=== PATIENT | female | born 1955 | race Caucasian/White ===

== ENCOUNTER 2025-01-24 08:34 | Inpatient (IN) ==
--- NOTE | 2025-01-24 08:46 | Emergency Department Note ---
Impression & Plan Pneumonia, Chronic respiratory failure with hypoxia, on home oxygen therapy, Advanced COPD ED Provider Note NAME: LUNA RUEDA AGE: 70 SEX: F : 1955 ARRIVES VIA: Ambulance INFORMANT: Patient ED PROVIDER(S): Natalio Easton DO CHIEF COMPLAINT: Cough, congestion, shortness of breath and chest pain with coughing HPI: Patient is a 70-year-old female with a past medical history of advanced COPD, tobacco abuse, chronic respiratory failure on 4 L nasal cannula who presents to the ER for symptoms that started a week ago. She notes that initially started with cough and congestion. She just finished up a Z-Chuck 2 days ago. The cough has been persistent. She is bringing up a green productive sputum. She admits to pain on her right upper anterior chest wall with coughing. She does have shortness of breath. No dysuria, urgency or frequency. No other exacerbating or remitting factors. ADDITIONAL HISTORY OBTAINED: Per HPI Chronic Medical/Social Conditions Affecting Care: Per HPI PAST MEDICAL HISTORY:See Below PAST SURGICAL HISTORY:See Below FAMILY HISTORY:See Below SOCIAL HISTORY:See Below HOME MEDICATIONS:See Below ALLERGIES:See Below VITALS:See Below PHYSICAL EXAMINATION: GENERAL: Sitting up in bed, alert, well appearing, well nourished, no distress, non-toxic EYE EXAM: normal conjunctiva. OROPHARYNX: no exudate, no erythema, lips, buccal mucosa, and tongue normal and mucous membranes are moist NECK: supple, no nuchal rigidity, no adenopathy, non-tender LUNGS: Diffuse wheezing bilaterally. Normal chest wall mechanics CHEST: Tenderness over the anterior chest wall on palpation HEART: no murmurs, S1 normal and S2 normal ABDOMEN: abdomen soft, non-tender, normo-active bowel sounds, no masses, no rebound or guarding. UPPER EXTREMITIES: upper extremities are grossly normal. LOWER EXTREMITIES: No pitting edema. Calves are equal bilaterally NEURO EXAM: Normal sensorium, cranial nerves II-XII grossly intact, normal speech, no gross weakness of arms, no gross weakness of legs. MEDICAL DECISION MAKING: Patient is a 70-year-old female who presents ER for above-stated complaint. IV was established and blood work is obtained. She is found to be tachycardic heart rate in the 120s. She was placed on nasal cannula. She was given hour- long DuoNeb in combination with IV steroids Rocephin and azithromycin. Chest x- ray suggested questionable pneumonia. CT of the chest to confirm this. Patient was updated at bedside. She was given IV fluids. Labs showed a leukocytosis of 15,000. No significant anemia. VBG was unremarkable. BMP PE with a mild hypokalemia at 3.4. Lactate and LFTs and bilirubin were unremarkable. Troponin negative. Lipase normal. Patient was updated at bedside discussed case with hospitalist for further evaluation management and treatment. Respiratory rate did improve with nebs. Consults/Care Managements Discussions: Per [facility] Triage Nursing notes reviewed. Limited review of prior medical records performed Vital Signs: reviewed and remarkable for no significant abnormalities Differential diagnosis: Differential diagnoses includes but is not limited to pneumonia, bronchitis, COPD/Asthma exacerbation, pneumothorax, pulmonary embolism, congestive heart failure, acute coronary syndrome ER treatment provided: See below Diagnostics interpreted by me include EKG and cardiac monitoring as listed below: -Cardiac Monitoring: An order was placed for continuous cardiac monitoring. The monitor shows a rate of 125 with sinus rhythm. -ECG: Sinus tachycardia rate of 130 Normal axis No PVCs QTc 438 -Laboratory studies:Interpreted by me as stated above in MDM and shown below. Imaging studies: Xrays: As interpreted by me: Portable AP upright 1 view of the chest shows questionable infiltrate CTs show: CT angio of the chest showed pneumonia Procedures:none Critical Care: None Past Med/Surg History Problem List (Updated 01/24/25 @ 15:15 by Natalio Easton DO) Pneumonia (Acute) Community acquired pneumonia (Acute) Nicotine use disorder (Chronic) Advanced COPD (Chronic) Anxiety (Chronic) Chronic respiratory failure with hypoxia, on home oxygen therapy (Chronic) Seasonal allergies (Chronic) GERD (gastroesophageal reflux disease) (Chronic) Medical History Acute exacerbation of chronic obstructive pulmonary disease Surgical History H/O tooth extraction H/O: hysterectomy partial - took uterus only History of rectal surgery Previous back surgery X3 Family History Denies family history of Ovarian cancer Prostate cancer Myocardial infarction Breast cancer Colorectal cancer Social History Smoking Status: Light tobacco smoker Tobacco Type: Cigarettes Age Started Using Tobacco: 11; packs per day: 0.25; Second Hand Exposure: Yes; Do You Dip or Chew Tobacco: No; Hx Alcohol Use: No Hx Substance Use: No Preferred Language: Citizen Of [place] Communication Ability: Effective Visual Impairment: Limited Hearing Ability: Normal Cdl Instructor Required: No Beliefs That Will Affect Care: None marital status: / Current Living Situation: Family Current Living Situation Comment: niece 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 Feels Safe at Home: Yes Childhood Exposure to Second-Hand Smoke: Yes caffeine: Yes (tea) during the past year weight has: remained stable Dental Care, Regularly: No Physical Activity Frequency: Daily Seatbelt Use: always Sunscreen Use: Yes Assistive Devices: Denture - Upper, Glasses and Oxygen - Continuous Allergies Allergies Allergy/AdvReac Type Severity Reaction Status Date / Time No Known Drug Allergies Allergy Intermediate Verified 01/15/25 14:40 Home Meds Home Medications Medication Instructions Recorded Confirmed pantoprazole 40 mg tablet,delayed 0 mg PO BID 01/15/25 01/24/25 release ensifentrine 3 mg/2.5 mL 0 ml inhalation BID 01/24/25 01/24/25 suspension for nebulization (Ohtuvayre) loratadine 10 mg tablet 0 mg PO DAILY 01/24/25 01/24/25 Previous Rx's Medication Instructions Recorded albuterol sulfate 90 mcg/actuation 2 inh inhalation Q4H PRN shortness 06/18/24 aerosol inhaler of breath or wheezing #3 Inhalers budesonide 160 mcg-glycopyr 9 2 inh inhalation BID #32.1 grams 06/18/24 mcg-formot 4.8 mcg/actuation HFA inhaler (Breztri Aerosphere) fluticasone propionate 50 1 spray intranasal BID PRN nasal 06/18/24 mcg/actuation nasal congestion #16 grams spray,suspension montelukast 10 mg tablet 10 mg PO DAILY #90 tabs 07/15/24 Portable Oxygen #1 ea 07/23/24 ipratropium 0.5 mg-albuterol 3 mg 3 ml inhalation TID PRN wheezing 08/05/24 (2.5 mg base)/3 mL nebulization #360 mL soln furosemide 20 mg tablet 20 mg PO QAM PRN edema #30 tabs 10/18/24 buspirone 10 mg tablet 10 mg PO BID #180 tabs 12/03/24 doxycycline hyclate 100 mg capsule 100 mg PO BID 10 days #20 caps 01/22/25 Results & Data (ED) Vital Signs Vital Signs - 24 hr 01/24/25 08:43 01/24/25 08:46 01/24/25 08:46 Temperature 37.0 C Temperature Source Oral Pulse Rate 128 H Pulse Rate from SpO2 Sensor Respiratory Rate 22 Respiratory Effort / Characteristics Non-Labored Spontaneous Respiratory Depth Normal Respiratory Pattern Regular Blood Pressure 118/60 118/60 118/60 Blood Pressure Mean 79 96 96 Pulse Oximetry 98 Oxygen Delivery Method Nasal Cannula Oxygen Flow Rate 4 Sepsis Recent Fever Within 48 Hours No Sepsis New/Unexplained Change in Mental Status No Sepsis Action Taken by Nursing Previously Notified 01/24/25 08:46 01/24/25 08:46 01/24/25 08:46 Temperature Temperature Source Pulse Rate Pulse Rate from SpO2 Sensor Respiratory Rate Respiratory Effort / Characteristics Respiratory Depth Respiratory Pattern Blood Pressure 118/60 118/60 118/60 Blood Pressure Mean 96 96 96 Pulse Oximetry Oxygen Delivery Method Oxygen Flow Rate Sepsis Recent Fever Within 48 Hours Sepsis New/Unexplained Change in Mental Status Sepsis Action Taken by Nursing 01/24/25 08:48 01/24/25 08:51 01/24/25 08:51 Temperature Temperature Source Pulse Rate 128 H 128 H 125 H Pulse Rate from SpO2 Sensor 127 H 125 H Respiratory Rate 23 27 H Respiratory Effort / Characteristics Respiratory Depth Respiratory Pattern Blood Pressure Blood Pressure Mean Pulse Oximetry 96 98 Oxygen Delivery Method Oxygen Flow Rate Sepsis Recent Fever Within 48 Hours Sepsis New/Unexplained Change in Mental Status Sepsis Action Taken by Nursing 01/24/25 09:00 01/24/25 09:00 01/24/25 09:00 Temperature Temperature Source Pulse Rate Pulse Rate from SpO2 Sensor Respiratory Rate Respiratory Effort / Characteristics Respiratory Depth Respiratory Pattern Blood Pressure 115/85 115/85 115/85 Blood Pressure Mean 100 100 100 Pulse Oximetry Oxygen Delivery Method Oxygen Flow Rate Sepsis Recent Fever Within 48 Hours Sepsis New/Unexplained Change in Mental Status Sepsis Action Taken by Nursing 01/24/25 09:00 01/24/25 09:00 01/24/25 09:00 Temperature Temperature Source Pulse Rate 121 H Pulse Rate from SpO2 Sensor 118 H Respiratory Rate 20 Respiratory Effort / Characteristics Respiratory Depth Respiratory Pattern Blood Pressure 115/85 115/85 Blood Pressure Mean 100 100 Pulse Oximetry 99 Oxygen Delivery Method Oxygen Flow Rate Sepsis Recent Fever Within 48 Hours Sepsis New/Unexplained Change in Mental Status Sepsis Action Taken by Nursing 01/24/25 09:12 01/24/25 09:21 01/24/25 09:30 Temperature Temperature Source Pulse Rate 128 H 127 H 129 H Pulse Rate from SpO2 Sensor 128 H 128 H 130 H Respiratory Rate 21 22 22 Respiratory Effort / Characteristics Respiratory Depth Respiratory Pattern Blood Pressure Blood Pressure Mean Pulse Oximetry 99 98 99 Oxygen Delivery Method Oxygen Flow Rate Sepsis Recent Fever Within 48 Hours Sepsis New/Unexplained Change in Mental Status Sepsis Action Taken by Nursing 01/24/25 09:42 01/24/25 09:51 01/24/25 10:00 Temperature Temperature Source Pulse Rate 127 H 126 H 122 H Pulse Rate from SpO2 Sensor 128 H 125 H 123 H Respiratory Rate 23 Respiratory Effort / Characteristics Respiratory Depth Respiratory Pattern Blood Pressure Blood Pressure Mean Pulse Oximetry 98 100 99 Oxygen Delivery Method Oxygen Flow Rate Sepsis Recent Fever Within 48 Hours Sepsis New/Unexplained Change in Mental Status Sepsis Action Taken by Nursing 01/24/25 10:00 01/24/25 10:00 01/24/25 10:00 Temperature Temperature Source Pulse Rate Pulse Rate from SpO2 Sensor Respiratory Rate Respiratory Effort / Characteristics Respiratory Depth Respiratory Pattern Blood Pressure 115/70 115/70 115/70 Blood Pressure Mean 100 100 100 Pulse Oximetry Oxygen Delivery Method Oxygen Flow Rate Sepsis Recent Fever Within 48 Hours Sepsis New/Unexplained Change in Mental Status Sepsis Action Taken by Nursing 01/24/25 10:00 01/24/25 10:00 01/24/25 10:12 Temperature Temperature Source Pulse Rate 122 H Pulse Rate from SpO2 Sensor 123 H Respiratory Rate 31 H Respiratory Effort / Characteristics Respiratory Depth Respiratory Pattern Blood Pressure 115/70 115/70 Blood Pressure Mean 100 100 Pulse Oximetry 98 Oxygen Delivery Method Oxygen Flow Rate Sepsis Recent Fever Within 48 Hours Sepsis New/Unexplained Change in Mental Status Sepsis Action Taken by Nursing 01/24/25 10:33 01/24/25 10:42 01/24/25 10:51 Temperature Temperature Source Pulse Rate 124 H 123 H 127 H Pulse Rate from SpO2 Sensor 124 H 123 H 127 H Respiratory Rate 25 H 20 21 Respiratory Effort / Characteristics Respiratory Depth Respiratory Pattern Blood Pressure Blood Pressure Mean Pulse Oximetry 97 98 98 Oxygen Delivery Method Oxygen Flow Rate Sepsis Recent Fever Within 48 Hours Sepsis New/Unexplained Change in Mental Status Sepsis Action Taken by Nursing Laboratory Data 01/24/25 08:50 01/24/25 08:50 Lab Results 01/24/25 Range/Units 08:50 WBC 15.57 H (4.8-10.8) K/ul RBC 4.10 L (4.20-5.40) M/uL Hgb 13.1 (12.0-16.0) g/dL Hct 40.2 (37.0-47.0) % MCV 98.0 (80.0-100.0) fL MCH 32.0 (25.0-34.0) pg MCHC 32.6 (32.0-36.0) g/dL RDW Std Deviation 51.5 H (36.4-46.3) fL RDW Coeff of Marleni 14.2 (11.5-14.5) % Plt Count 263 (130-400) K/uL MPV 8.5 L (9.4-12.4) fL Immature Gran % (Auto) 1.2 % Neut % (Auto) 79.9 % Lymph % (Auto) 13.4 % [place] % (Auto) 5.0 % Eos % (Auto) 0.3 % Baso % (Auto) 0.2 % Neut # (Auto) 12.46 H (1.40-6.50) K/uL Lymph # (Auto) 2.08 (1.20-3.40) K/uL [place] # (Auto) 0.78 H (0.11-0.59) K/uL Eos # (Auto) 0.04 (0.00-0.50) K/uL Baso # (Auto) 0.03 (0.00-0.20) K/uL Immature Gran # (Auto) 0.18 (0.01-0.20) K/uL Sodium 141 (136-145) mmol/L Potassium 3.4 L (3.5-5.1) mmol/L Chloride 101 (98-107) mmol/L Carbon Dioxide 26 (21-32) mmol/L Anion Gap 14 H (3-11) BUN 15 (6-23) mg/dl Creatinine 0.62 (0.6-1.2) mg/dl Est Cr Clr Drug Dosing 78.8 ml/min eGFR 95.15 BUN/Creatinine Ratio 24.2 H (10-20) Glucose 131 H (70-99(Fasting)) mg/dl Calcium 9.4 (8.6-10.3) mg/dl Total Bilirubin 0.9 (0.2-1.0) mg/dl AST 40 H (13-39) U/L ALT 43 (7-52) U/L Alkaline Phosphatase 130 H (34-104) U/L Troponin I High Sens 6.2 (0-14) pg/ml Total Protein 7.5 (6.0-8.3) gm/dl Albumin 4.1 (3.4-5.0) gm/dl Globulin 3.4 (2.5-4.0) gm/dl Albumin/Globulin Ratio 1.2 (0.9-2) Lipase 13 (11-82) U/L SARS-CoV-2 (PCR) NEGATIVE (Negative) Influenza Type A (PCR) Negative (Neg) Influenza Type B (PCR) Negative (Neg) RSV (RT-PCR) Negative (Neg) Administered Medications Acetaminophen (Acetaminophen 500 Mg Tab) 1,000 mg PO Q8H NHI Stop: 02/23/25 12:59 Last Admin: 01/24/25 13:05 Dose: 1,000 mg Documented By: jermaine Albuterol (Albut/Ipratrop 3mg/0.5mg Neb 3 Ml Vial) 3 ml NEB Q6R NHI; Protocol Stop: 02/23/25 12:59 Last Admin: 01/24/25 12:50 Dose: 3 ml Documented By: TALAT Enoxaparin Sodium (Enoxaparin Inj 40 Mg/0.4 Ml Syr) 40 mg SQ Q24H NHI Stop: 02/23/25 12:59 Last Admin: 01/24/25 13:06 Dose: 40 mg Documented By: jermaine Levofloxacin/Dextrose (Levaquin/D5w) 750 mg in 150 mls @ 100 mls/hr IV Q24H NHI; Protocol Stop: 01/29/25 12:59 Last Infusion: 01/24/25 14:58 Dose: Infused Documented By: jermaine Admin: 01/24/25 13:05 Dose: 100 mls/hr Documented By: jermaine Ketorolac Tromethamine (Ketorolac Tromethamine 15 Mg/Ml Vial) 15 mg IV Q6H NHI Stop: 01/29/25 12:59 Last Admin: 01/24/25 13:05 Dose: 15 mg Documented By: jermaine Miscellaneous (Order Awaiting Action) 1 each N/A QS NHI Stop: 02/23/25 15:59 Last Admin: 01/24/25 13:53 Dose: Not Given Documented By: jermaine Discontinued Medications Albuterol (Albut/Ipratrop 3mg/0.5mg Neb 3 Ml Vial) 9 ml NEB NOW STA; Protocol Stop: 01/24/25 08:42 Last Admin: 01/24/25 08:52 Dose: 9 ml Documented By: roula Albuterol (Albut/Ipratrop 3mg/0.5mg Neb 3 Ml Vial) Confirm Administered Dose 3 ml .ROUTE .STK-MED ONE Stop: 01/24/25 12:46 Last Admin: 01/24/25 12:50 Dose: Not Given Documented By: TALAT Azithromycin (Azithromycin 250 Mg Tab) 500 mg PO NOW ONE Stop: 01/24/25 10:56 Last Admin: 01/24/25 11:22 Dose: 500 mg Documented By: roula Ceftriaxone Sodium (Rocephin) 2,000 mg in 50 mls @ 100 mls/hr IV NOW STA Stop: 01/24/25 11:24 Last Infusion: 01/24/25 12:43 Dose: Infused Documented By: jermaine Admin: 01/24/25 11:22 Dose: 100 mls/hr Documented By: roula Acetaminophen (Ofirmev) 1,000 mg in 100 mls @ 400 mls/hr IV NOW STA Stop: 01/24/25 12:37 Last Admin: 01/24/25 13:30 Dose: Not Given Documented By: jermaine Ioversol (Optiray 320 125ml) 112 ml IV ONCE ONE Stop: 01/24/25 10:27 Last Admin: 01/24/25 10:26 Dose: 112 ml Documented By: STARR Ketorolac Tromethamine (Ketorolac 30 Mg/Ml Vial) 30 mg IV NOW ONE Stop: 01/24/25 12:24 Last Admin: 01/24/25 13:31 Dose: Not Given Documented By: jermaine Methylprednisolone (Methylprednisolone 125 Mg/2 Ml Vial) 60 mg IV NOW STA Stop: 01/24/25 08:42 Last Admin: 01/24/25 08:51 Dose: 60 mg Documented By: roula Imaging Data Radiologist's Impression: Chest X-Ray 01/24/25 08:43 XR chest 1V portable CLINICAL HISTORY: Chest pain, nonspecific COMPARISON STUDY: 11/01/2024 FINDINGS: Heart size and pulmonary vasculature are normal. There is interval density medial right upper lung versus prominence of the right upper mediastinum. No other consolidation or pleural effusion seen. No pneumothorax. IMPRESSION: Increased density medial right upper lung versus prominence of the right upper mediastinum. Differential diagnosis includes infectious/inflammatory and mass/malignancy and artifact. Follow-up chest CT recommended. ACT 112: Positive. There are findings on this exam that require communication between the performing entity and the patient following Patient Test Result Information Act [place] Act 112) guidelines. Electronically signed by: Aj Spivey M.D. 01/24/2025 9:11 AM Chest CTA 01/24/25 09:23 CT angio chest PE protocol CT DOSE: 543.37 mGy.cm HISTORY: per rads pulm mass. TECHNIQUE: Multiple CTA images of the chest were obtained after the intravenous administration of 112 ml Optiray. Coronal and sagittal MIPS were obtained from the axial data set and were submitted for review. All measurements were obtained according to NASCET criteria. A dose lowering technique was utilized adhering to the principles of ALARA. COMPARISON STUDY: Chest x-ray earlier today and CT of 05/27/2024 FINDINGS: There is motion artifact due to difficulty breath holding. There are mild airway secretions at the right lower lobe. There is severe emphysema. There is an interval area of patchy dense consolidation medial upper right upper lobe measuring 5 cm greatest dimension which correlates with the chest x-ray finding. There is reticular opacity posterior and perihilar right upper lobe and medial right middle lobe. No other pulmonary consolidation or pleural effusion. No pneumothorax. Stable partially calcified nodule at the right breast. There is a 1.7 cm right pericarinal soft tissue density which is obscured by spray artifact, likely enlarged lymph node. There are a few other minimally prominent mediastinal lymph nodes. No thoracic aortic dissection or aneurysm. No pulmonary embolism seen. No acute osseous findings. IMPRESSION: 1. No pulmonary embolism seen. 2. Findings at the right lung are most consistent with pneumonia, most prominent at the right upper lobe. Underlying malignancy not excluded. Recommend follow-up chest CT in 3 months to make sure that this completely resolves without underlying mass. 3. Otherwise as described. ACT 112: Positive. There are findings on this exam that require communication between the performing entity and the patient following Patient Test Result Information Act [place] Act 112) guidelines. The above report was generated using voice recognition software. It may contain grammatical, syntax or spelling errors. Electronically signed by: Aj Spivey M.D. 01/24/2025 10:43 AM Discharge Plan Visit Data Chief Complaint: Illness Stated Complaint: Illness ED Provider: Natalio Easton Discharge Problem: Pneumonia, Chronic respiratory failure with hypoxia, on home oxygen therapy, Advanced COPD Patient Disposition: Admitted As Inpatient Condition: Fair Discharge Instructions Interventions: ED Discharge Assessment Last Done: 01/24/25 12:21 Discharge Problem: Pneumonia Qualifiers: Pneumonia type: due to unspecified organism Laterality: unspecified laterality Lung location: unspecified part of lung Qualified Code(s): J18.9 - Pneumonia, unspecified organism
[2025-01-24] MEDS: ALBUT/IPRATROP 3MG/0.5MG NEB 3 ML VIAL NEB STA (08:52)
[2025-01-24 09:03] LABS: Hematocrit (blood only) 40.2 % (37.0-47.0); Hemoglobin 13.1 g/dL (12.0-16.0); Immature Granulocytes # (auto) 0.18 K/uL (0.01-0.20); Immature Granulocytes % (auto) 1.2 %; Mean Corpuscular Hemoglobin 32.0 pg (25.0-34.0); Mean Corpuscular Volume 98.0 fL (80.0-100.0); Platelet Count 263 K/uL (130-400); RDW Standard Deviation 51.5 fL (36.4-46.3); Red Blood Count 4.10 M/uL (4.20-5.40); White Blood Count 15.57 K/ul (4.8-10.8)
--- NOTE | 2025-01-24 09:12 | XRay Report ---
XR chest 1V portable CLINICAL HISTORY: Chest pain, nonspecific COMPARISON STUDY: 11/01/2024 FINDINGS: Heart size and pulmonary vasculature are normal. There is interval density medial right upp er lung versus prominence of the right upper mediastinum. No other consolidation or pleural effusion seen. No pneumothorax. IMPRESSION: Increased density medial right upper lung versus prominence of the right upper mediastin um. Differential diagnosis includes infectious/inflammatory and mass/malignancy and artifact. Follow- up chest CT recommended. ACT 112: Positive. There are findings on this exam that require communication between the performing entity and the patient following Patient Test Result Information Act [place] Act 112) guidelines. Electronically signed by: Aj Spivey M.D. 01/24/2025 9:11 AM
[2025-01-24 09:18] LABS: Alanine Aminotransferase 43.0 U/L (7-52); Albumin Globulin Ratio 1.2 (0.9-2); Albumin Level 4.1 gm/dl (3.4-5.0); Alkaline Phosphatase 130.0 U/L (34-104); Anion Gap 14.0 (3-11); Bilirubin,Total 0.9 mg/dl (0.2-1.0); Blood Urea Nitrogen 15.0 mg/dl (6-23); Calcium 9.4 mg/dl (8.6-10.3); Carbon Dioxide 26.0 mmol/L (21-32); Chloride 101.0 mmol/L (98-107); Creatinine Clr Calc Pharmacy 78.8 ml/min; Globulin 3.4 gm/dl (2.5-4.0); Glucose 131.0 mg/dl (70-99(Fasting)); Lipase 13.0 U/L (11-82); Potassium 3.4 mmol/L (3.5-5.1); Sodium 141.0 mmol/L (136-145); Total Protein 7.5 gm/dl (6.0-8.3)
[2025-01-24 10:01] LABS: Influenza A virus by PCR Negative (Neg); Influenza B virus by PCR Negative (Neg); SARS CoV2 RNA(COVID-19) Ceph NEGATIVE (Negative)
[2025-01-24] MEDS: OPTIRAY 320 125ml IV ONE (10:26)
--- NOTE | 2025-01-24 10:45 | CT Scan Report ---
CT angio chest PE protocol CT DOSE: 543.37 mGy.cm HISTORY: per rads pulm mass. TECHNIQUE: Multiple CTA images of the chest were obtained after the intravenous administration of 112 ml Optiray. Coronal and sagittal MIPS were obtained from the axial data set and were submitted for review. All measurements were obtained according to NASCET criteria. A dose lowering technique was u tilized adhering to the principles of ALARA. COMPARISON STUDY: Chest x-ray earlier today and CT of 05/27/2024 FINDINGS: There is motion artifact due to difficulty breath holding. There are mild airway secretions at the right lower lobe. There is severe emphysema. There is an interval area of patchy dense consol idation medial upper right upper lobe measuring 5 cm greatest dimension which correlates with the [facility] st x-ray finding. There is reticular opacity posterior and perihilar right upper lobe and medial righ t middle lobe. No other pulmonary consolidation or pleural effusion. No pneumothorax. Stable partiall y calcified nodule at the right breast. There is a 1.7 cm right pericarinal soft tissue density which is obscured by spray artifact, likely enlarged lymph node. There are a few other minimally prominent mediastinal lymph nodes. No thoracic aortic dissection or aneurysm. No pulmonary embolism seen. No a cute osseous findings. IMPRESSION: 1. No pulmonary embolism seen. 2. Findings at the right lung are most consistent with pneumonia, most prominent at the right upper l obe. Underlying malignancy not excluded. Recommend follow-up chest CT in 3 months to make sure that t his completely resolves without underlying mass. 3. Otherwise as described. ACT 112: Positive. There are findings on this exam that require communication between the performing entity and the patient following Patient Test Result [place] Act [place] Act 112) guidelines. The above report was generated using voice recognition software. It may contain grammatical, syntax o r spelling errors. Electronically signed by: Aj Spivey M.D. 01/24/2025 10:43 AM
[2025-01-24] MEDS: cefTRIAXone SODIUM 2,000 MG/50 ML BAG IV STA (11:22)
[2025-01-24] MEDS: AZITHROMYCIN 250 MG TAB PO ONE (11:22)
--- NOTE | 2025-01-24 11:46 | History & Physical Report ---
Date of Service January 24, 2025 Assessment & Plan (1) Community acquired pneumonia: (2) Nicotine use disorder: (3) Chronic respiratory failure with hypoxia, on home oxygen therapy: (4) Advanced COPD: Plan In summary this is a 70-year-old female who presents with community-acquired pneumonia #Community acquired pneumonia // Chronic respiratory failure with hypoxia, requiring continuous oxygen supplementation // Nicotine use disorder Patient presents with progressive cough, increased dyspnea on exertion, pleuritic right sided chest wall pain, tachypnea; PSI score of 71; notable neutrophilic leukocytosis; plain film and CT angiogram of the chest reviewed with findings consistent with pneumonia; Shorr score of 0; at this time the patient's presentation is not consistent with a comorbid COPD exacerbation, at this time we will withhold additional steroid therapy unless these findings become more apparent Follow vital signs every 4 hours for 24 hours then transition to every shift when vital signs stable Activity as tolerated Incentive spirometry and flutter valve every hour while awake Continue home inhaler therapies Start DuoNebs every 6 hours scheduled Start albuterol nebulizers every 3 hours as needed for breakthrough shortness of breath Maintain oxygen saturation greater than 90% Viral swabs for influenza, RSV, COVID-19 unremarkable Reassess AP and lateral chest film on 01/25 Start levofloxacin 750 mg IV daily Follow daily CBC with manual differential, renal function panel #Intercostal muscle strain Consequential of coughing associated with CAP; pain management as below -Start acetaminophen 1000 mg p.o. every 8 hours -Start ketorolac 15 mg IV every 6 hours scheduled, to be continued through 01/28 or discontinued at discharge, whichever occurs first The remainder the patient's chronic medical conditions are stable and do not require adjustment to their outpatient regimen at this time History of Present Illness Chief Complaint: Persistent cough and progressive shortness of breath Primary Care Provider: Ajay Delgado DO Ms. Winters is a 70-year-old female whose active medical conditions include chronic respiratory failure with hypoxia in the setting of chronic mucinous bronchitis requiring 3 to 4 L of supplemental oxygen by nasal cannula continuously, nicotine use disorder, generalized anxiety disorder among other chronic medical conditions who presented to the [facility] on 01/24 due to persistent and progressive cough and shortness of breath. Patient reports she began to feel unwell approximately 7 days prior to her presentation with what she thought was bacterial sinusitis. She was prescribed a course of azithromycin for 5 days which did not resolve her symptoms. She endorses right sided chest wall pain that began after a rough coughing episode on 01/23 which resulted in now pleuritic chest pain. She typically has a productive cough related to her COPD, but denies any worsening of this during the current course. She has used her rescue inhalers more frequently over this time. She denies any fevers, chills, nausea, vomiting, purulent expectoration or hemoptysis, chest pain other than the previously described discomfort, palpitations, lower extremity swelling. Allergies Allergy/AdvReac Type Severity Reaction Status Date / Time No Known Drug Allergies Allergy Intermediate Verified 01/15/25 14:40 Home Medications Medication Instructions Recorded Confirmed Type albuterol sulfate 90 mcg/actuation 2 inh inhalation Q4H PRN shortness 06/18/24 01/24/25 Rx aerosol inhaler of breath or wheezing #3 Inhalers budesonide 160 mcg-glycopyr 9 2 inh inhalation BID #32.1 grams 06/18/24 01/24/25 Rx mcg-formot 4.8 mcg/actuation HFA inhaler (Breztri Aerosphere) fluticasone propionate 50 1 spray intranasal BID PRN nasal 06/18/24 01/24/25 Rx mcg/actuation nasal congestion #16 grams spray,suspension montelukast 10 mg tablet 10 mg PO DAILY #90 tabs 07/15/24 01/24/25 Rx Portable Oxygen #1 ea 07/23/24 01/15/25 Rx ipratropium 0.5 mg-albuterol 3 mg 3 ml inhalation TID PRN wheezing 08/05/24 01/24/25 Rx (2.5 mg base)/3 mL nebulization #360 mL soln furosemide 20 mg tablet 20 mg PO QAM PRN edema #30 tabs 10/18/24 01/24/25 Rx buspirone 10 mg tablet 10 mg PO BID #180 tabs 12/03/24 01/24/25 Rx pantoprazole 40 mg tablet,delayed 0 mg PO BID 01/15/25 01/24/25 History release doxycycline hyclate 100 mg capsule 100 mg PO BID 10 days #20 caps 01/22/25 01/24/25 Rx ensifentrine 3 mg/2.5 mL 0 ml inhalation BID 01/24/25 01/24/25 History suspension for nebulization (Ohtuvayre) loratadine 10 mg tablet 0 mg PO DAILY 01/24/25 01/24/25 History Past Med/Surg History Problem List (Updated 01/24/25 @ 13:57 by Azeem Plascencia DO) Community acquired pneumonia (Acute) Nicotine use disorder (Chronic) Advanced COPD (Chronic) Anxiety (Chronic) Chronic respiratory failure with hypoxia, on home oxygen therapy (Chronic) Seasonal allergies (Chronic) GERD (gastroesophageal reflux disease) (Chronic) Medical History Acute exacerbation of chronic obstructive pulmonary disease Surgical History H/O tooth extraction H/O: hysterectomy partial - took uterus only History of rectal surgery Previous back surgery X3 Family History Denies family history of Ovarian cancer Prostate cancer Myocardial infarction Breast cancer Colorectal cancer Social History Smoking Status: Light tobacco smoker Tobacco Type: Cigarettes Age Started Using Tobacco: 11; packs per day: 0.25; Second Hand Exposure: Yes; Do You Dip or Chew Tobacco: No; Hx Alcohol Use: No Hx Substance Use: No Preferred Language: Fijian Communication Ability: Effective Visual Impairment: Limited Hearing Ability: Normal 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[employer] Specimens Required: No Beliefs That Will Affect Care: None marital status: / Current Living Situation: Family Current Living Situation Comment: niece 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 occupational 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 Feels Safe at Home: Yes Childhood Exposure to Second-Hand Smoke: Yes caffeine: Yes (tea) during the past year weight has: remained stable Dental Care, Regularly: No Physical Activity Frequency: Daily Seatbelt Use: always Sunscreen Use: Yes Assistive Devices: Denture - Upper, Glasses and Oxygen - Continuous Review of Systems Review of Systems: Review of constitutional, cardiovascular, pulmonary, gastrointestinal systems was unremarkable except for pertinent positive and negative findings discussed above Physical Exam Physical Exam: General: Adult female in no acute distress Vital Signs: Reviewed; persistently tachycardic with regular RR interval noted on telemetry; saturating at goal on home 4 L of oxygen by nasal cannula HEENT: Tacky mucous membranes; pupils equally round and reactive to light, extraocular motion intact Neck: No notable jugular venous distention at rest nor with hepatojugular reflux Pulmonary: Symmetrically reduced chest wall excursion secondary to right sided chest wall discomfort with deep inhalation; diminished air movement throughout all lung marin with mid end expiratory wheezing without any focal findings Cardiovascular: Tachycardic rate with regular rhythm without murmurs, rubs, or gallops; S1 and S2 normal; right radial pulse 2+; bilateral lower extremity lipedema Musculoskeletal: Tenderness to palpation in the right 5th through 8th intercostal space; no reproducible tenderness along the costochondral border bilaterally Neurologic: Cranial nerves II through XII grossly intact Results & Data Results & Data Vital Signs (Past 12 Hours) Vital Signs Temp Pulse Resp BP Pulse Ox O2 Del Method O2 Flow Rate 01/24/25 10:51 127 H 21 98 01/24/25 10:42 123 H 20 98 01/24/25 10:33 124 H 25 H 97 01/24/25 10:12 122 H 31 H 98 01/24/25 10:00 115/70 01/24/25 10:00 115/70 01/24/25 10:00 115/70 01/24/25 10:00 115/70 01/24/25 10:00 115/70 01/24/25 10:00 122 H 99 01/24/25 09:51 126 H 23 100 01/24/25 09:42 127 H 98 01/24/25 09:30 129 H 22 99 01/24/25 09:21 127 H 22 98 01/24/25 09:12 128 H 21 99 01/24/25 09:00 121 H 20 99 01/24/25 09:00 115/85 01/24/25 09:00 115/85 01/24/25 09:00 115/85 01/24/25 09:00 115/85 01/24/25 09:00 115/85 01/24/25 08:51 125 H 27 H 98 01/24/25 08:51 128 H 01/24/25 08:48 128 H 23 96 01/24/25 08:46 118/60 01/24/25 08:46 118/60 01/24/25 08:46 118/60 01/24/25 08:46 118/60 01/24/25 08:46 118/60 01/24/25 08:43 37.0 C 128 H 22 118/60 98 Nasal Cannula 4 Laboratory Results Leukocytosis with neutrophilic predominance of 15.57 Anion gap of 14; lactic acid normal Diagnostic Findings Portable chest film revealed increased density of the right upper lung versus the right upper mediastinum; subsequent CT angiogram of the chest revealed pneumonia in this same area, with mention the underlying malignancy resulting in obstructive pneumonia cannot be fully excluded ECG Additional Comments: Tachycardic rate with regular rhythm; normal axis; normal R wave progression; no ischemic change Code Status & VTE Plan Code Status DNR/DNI VTE Prophylaxis Plan VTE Prophylaxis will be ordered: Yes PG Care Time/CCT Total # of Minutes Spent Total Time Spent with Patient: Total time spent is greater than 50% in coordination of care (as documented) at patient's floor/unit and/or counseling patient: Coding Level of Care Code 47573 INT INP/OBS CARE 2/55MIN Diagnoses Community acquired pneumonia of right upper lobe of lung J18.9 Laterality: right Lung location: upper lobe of lung Nicotine use disorder F17.200 Chronic respiratory failure with hypoxia, on home oxygen therapy J96.11; Z99.81 Advanced COPD J44.9 (1) Community acquired pneumonia Laterality: right Lung location: upper lobe of lung Qualified Code(s): J18.9 - Pneumonia, unspecified organism
[2025-01-24 12:18] LABS: Base Excess VBG -0.2 mEq/L; HCO3 VBG 25 mmol/L; Oxygen Saturation VBG 94.2 %; PCO2 VBG 44 mmHg (38-50); PO2 VBG 63 mmHg; pH VBG 7.37 (7.36-7.41)
[2025-01-24] MEDS: ALBUT/IPRATROP 3MG/0.5MG NEB 3 ML VIAL ONE (12:50)
[2025-01-24] MEDS: ALBUT/IPRATROP 3MG/0.5MG NEB 3 ML VIAL NEB SCH (12:50)
[2025-01-24] MEDS: ACETAMINOPHEN 500 MG TAB PO SCH (13:05)
[2025-01-24] MEDS: KETOROLAC TROMETHAMINE 15 MG/ML VIAL IV SCH (13:05)
[2025-01-24] MEDS: ENOXAPARIN INJ 40 MG/0.4 ML SYR SQ SCH (13:06)
[2025-01-24] MEDS: ACETAMINOPHEN 1,000 MG/100 ML VIAL IV STA (13:30)
[2025-01-24] MEDS: KETOROLAC 30 MG/ML VIAL IV ONE (13:31)
[2025-01-24] MEDS: DICLOFENAC SOD 1% GEL 100 GM TUBE EXT SCH (17:13)
[2025-01-24] MEDS: busPIRone 5 MG TAB PO SCH (20:34)
--- NOTE | 2025-01-24 22:43 | Electrocardiogram Report ---
Test Reason : Blood Pressure : */* mmHG Vent. Rate : 130 BPM Atrial Rate : 130 BPM P-R Int : 118 ms QRS Dur : 74 ms QT Int : 298 ms P-R-T Axes : 78 74 61 degrees QTcB Int : 438 ms Sinus tachycardia Low voltage QRS Nonspecific ST abnormality Abnormal ECG When compared with ECG of 01-Nov-2024 16:09, Borderline criteria for Inferior infarct are no longer Present T wave inversion no longer evident in Inferior leads Confirmed by Kulwinder Goodson ([id number]) on 01/24/2025 10:43:47 PM Referred By: Confirmed By: Kulwinder Goodson
[2025-01-25] MEDS: COUGH DROP (SUGAR FREE) LOZ 24 LOZ/1 BOX BUCCAL PRN (05:28)
--- NOTE | 2025-01-25 07:30 | Hospitalist Progress Note ---
Date of Service January 25, 2025 Assessment & Plan (1) Community acquired pneumonia: (2) Nicotine use disorder: (3) Chronic respiratory failure with hypoxia, on home oxygen therapy: (4) Advanced COPD: Plan In summary this is a 70-year-old female who presents with community-acquired pneumonia #Community acquired pneumonia // Chronic respiratory failure with hypoxia, requiring continuous oxygen supplementation // Nicotine use disorder Patient presented with progressive mildly productive cough, increased dyspnea on exertion, pleuritic right sided chest wall pain, tachypnea; initial PSI score of 71; notable neutrophilic leukocytosis; plain film and CT angiogram of the chest reviewed with findings consistent with pneumonia; Shorr score of 0; at this time the patient's presentation is not consistent with a comorbid COPD exacerbation, thus will withhold additional steroid therapy unless these findings become more apparent Follow vital signs every 4 hours for 24 hours then transition to every shift when vital signs stable Activity as tolerated Incentive spirometry and flutter valve every hour while awake Continue home inhaler therapies Continue DuoNebs every 6 hours scheduled Continue albuterol nebulizers every 3 hours as needed for breakthrough shortness of breath - Start hypertonic saline nebulizer twice daily to assist with expectoration Continue levofloxacin 750 mg IV daily Maintain oxygen saturation greater than 90% Viral swabs for influenza, RSV, COVID-19 unremarkable #Intercostal muscle strain Consequential of coughing associated with CAP; pain management as below -Continue acetaminophen 1000 mg p.o. every 8 hours -Continue ketorolac 15 mg IV every 6 hours scheduled, to be continued through 01/28 or discontinued at discharge, whichever occurs first The remainder the patient's chronic medical conditions are stable and do not require adjustment to their outpatient regimen at this time Admission and Anticipated Discharge Date Admission Date: January 24, 2025 Subjective Ms. Winters is a 70-year-old female whose active medical conditions include chronic respiratory failure with hypoxia in the setting of chronic mucinous bronchitis requiring 3 to 4 L of supplemental oxygen by nasal cannula continuously, nicotine use disorder, generalized anxiety disorder among other chronic medical conditions who presented to the [facility] on 01/24 due to persistent and progressive cough and shortness of breath. No acute overnight events Review of Systems Review of Systems: Review of constitutional, cardiovascular, pulmonary, gastrointestinal systems w as unremarkable except for pertinent positive and negative findings discussed above Physical Exam Physical Exam: General: Adult female in no acute distress Vital Signs: Reviewed; saturating at goal on home 4 L of oxygen by nasal cannula HEENT: moist mucous membranes Pulmonary: Symmetrically reduced chest wall excursion secondary to right sided chest wall discomfort with deep inhalation; improved air movement throughout all lung marin with mid end expiratory wheezing, crackles appreciated in the right superior lobe Cardiovascular: regular rate and rhythm without murmurs, rubs, or gallops; S1 and S2 normal; right radial pulse 2+; bilateral lower extremity lipedema Musculoskeletal: Tenderness to palpation in the right 5th through 8th intercostal space; no reproducible tenderness along the costochondral border bilaterally Neurologic: Cranial nerves II through XII grossly intact Results & Data Results & Data Vital Signs (Past 12 Hours) Vital Signs Temp Pulse Pulse Resp BP Pulse Ox O2 Del Method 01/25/25 07:16 97 H 01/25/25 01:15 93 H 01/25/25 00:36 98 H 17 95 Nasal Cannula 01/24/25 22:18 36.7 C 102 H 16 125/77 96 Nasal Cannula 01/24/25 22:04 Nasal Cannula 01/24/25 21:50 113 H 01/24/25 19:43 105 H 18 98 Nasal Cannula 01/24/25 19:35 36.5 C 100 H 18 122/75 97 Nasal Cannula O2 Flow Rate 01/25/25 07:16 01/25/25 01:15 01/25/25 00:36 3.5 01/24/25 22:18 4 01/24/25 22:04 3.5 01/24/25 21:50 01/24/25 19:43 4 01/24/25 19:35 4 Diagnostic Findings PA and Lateral chest film without evidence of progressive pulmonary disease; right hilar fullness noted with some evidence of pulmonary vascular congestion and fluid in the horizontal fissure PG Care Time/CCT Total # of Minutes Spent Total Time Spent with Patient: Total time spent is greater than 50% in coordination of care (as documented) at patient's floor/unit and/or counseling patient: Coding Level of Care Code 51305 SUB INP/OBS CARE 235MIN Diagnoses Community acquired pneumonia of right upper lobe of lung J18.9 Laterality: right Lung location: upper lobe of lung Nicotine use disorder F17.200 Chronic respiratory failure with hypoxia, on home oxygen therapy J96.11; Z99.81 Advanced COPD J44.9 (1) Community acquired pneumonia Laterality: right Lung location: upper lobe of lung Qualified Code(s): J18.9 - Pneumonia, unspecified organism
[2025-01-25] MEDS: UMECLIDINIUM/VILANTEROL 62.5/25MCG 7 PUFFS/INHALER INH SCH (08:45)
[2025-01-25] MEDS: FLUTICASONE FUROATE 200MCG 14 PUFFS/INHALER INH SCH (08:45)
[2025-01-25] MEDS: MONTELUKAST SODIUM 10 MG TABLET PO SCH (08:48)
--- NOTE | 2025-01-25 09:34 | XRay Report ---
Technique: PA and lateral views of the chest were obtained Comparison is made to the prior examination dated 11/01/2024 Findings: There is new right upper lobe infiltrate, likely due to pneumonia. There is suspected mild right middle lobe infiltrate as well. The heart size is within normal limits. No pleural effusion or pneumothorax is seen. There is no definite pulmonary nodule. No fracture is noted. No foreign body is seen Impression: Suspected right upper lobe and right middle lobe pneumonia ACT 112: Positive. There are findings on this exam that require communication between the performing entity and the patient following Patient Test Result Information Act ([place] ACT 112) guidelines. Electronically signed by Gordo Cameron 01-25-2025 09:34 AM
[2025-01-25] MEDS: ALBUTEROL 0.083% NEBU SOLN 3 ML VIAL NEB PRN (10:41)
[2025-01-25] MEDS: diphenhydrAMINE 50 MG/ML VIAL IV ONE (15:25)
[2025-01-25] MEDS: SODIUM CHLOR 7% 4 ML NEB NEB SCH (19:25)
[2025-01-25] MEDS: diphenhydrAMINE Capsule 25 MG CAP PO PRN (19:56)
[2025-01-25] MEDS ORDERED: ZOLPIDEM TARTRATE 5 MG TAB PO ONE (22:00)
--- NOTE | 2025-01-26 10:54 | Hospitalist Progress Note ---
Date of Service January 26, 2025 Assessment & Plan (1) Community acquired pneumonia: (2) Nicotine use disorder: (3) Chronic respiratory failure with hypoxia, on home oxygen therapy: (4) Advanced COPD: Plan In summary this is a 70-year-old female who presents with community-acquired pneumonia #Community acquired pneumonia // Chronic respiratory failure with hypoxia, requiring continuous oxygen supplementation // Nicotine use disorder // Tachycardia Patient presented with progressive mildly productive cough, increased dyspnea on exertion, pleuritic right sided chest wall pain, tachypnea; initial PSI score of 71; notable neutrophilic leukocytosis; plain film and CT angiogram of the chest reviewed with findings consistent with pneumonia; Shorr score of 0; at this time the patient's presentation is not consistent with a comorbid COPD exacerbation, thus will withhold additional steroid therapy unless these findings become more apparent; tachycardia is likely consequential of beta-agonist frequency in addition to pain from intercostal strain Follow vital signs every shift Activity as tolerated Incentive spirometry and flutter valve every hour while awake Continue home inhaler therapies Space DuoNebs to every 12 hours scheduled Continue albuterol nebulizers every 3 hours as needed for breakthrough shortness of breath - Continue hypertonic saline nebulizer twice daily to assist with expectoration Continue levofloxacin 750 mg IV daily Maintain oxygen saturation greater than 90% Viral swabs for influenza, RSV, COVID-19 unremarkable #Intercostal muscle strain Consequential of coughing associated with CAP; pain management as below -Continue acetaminophen 1000 mg p.o. every 8 hours -Continue ketorolac 15 mg IV every 6 hours scheduled, to be continued through 01/28 or discontinued at discharge, whichever occurs first The remainder the patient's chronic medical conditions are stable and do not require adjustment to their outpatient regimen at this time Admission and Anticipated Discharge Date Admission Date: January 24, 2025 Subjective Ms. Winters is a 70-year-old female whose active medical conditions include chronic respiratory failure with hypoxia in the setting of chronic mucinous bronchitis requiring 3 to 4 L of supplemental oxygen by nasal cannula continuo usly, nicotine use disorder, generalized anxiety disorder among other chronic medical conditions who presented to the [facility] on 01/24 due to persistent and progressive cough and shortness of breath. No acute overnight events; notes some intermittent palpitations, especially worse after breathing treatments without associated pain; intercostal pain has improved Review of Systems Review of Systems: Review of constitutional, cardiovascular, pulmonary, gastrointestinal systems was unremarkable except for pertinent positive and negative findings discussed above Physical Exam Physical Exam: General: Adult female in no acute distress Vital Signs: Reviewed; saturating at goal on home 4 L of oxygen by nasal cannula HEENT: moist mucous membranes Pulmonary: Symmetrically reduced chest wall excursion secondary to right sided chest wall discomfort with deep inhalation; improved air movement throughout all lung marin with mid end expiratory wheezing, crackles appreciated in the right superior and basilar posterior lobes Cardiovascular: regular rate and rhythm without murmurs, rubs, or gallops; S1 and S2 normal; right radial pulse 2+; bilateral lower extremity lipedema Musculoskeletal: Tenderness to palpation in the right 5th through 8th intercostal space; no reproducible tenderness along the costochondral border bilaterally Neurologic: Cranial nerves II through XII grossly intact Results & Data Results & Data Vital Signs (Past 12 Hours) Vital Signs Temp Pulse Pulse Resp BP Pulse Ox O2 Del Method 01/26/25 07:54 94 Nasal Cannula 01/26/25 07:51 36.7 C 112 H 16 110/73 93 Nasal Cannula 01/26/25 07:35 111 H 18 94 Nasal Cannula 01/26/25 07:13 103 H 01/26/25 03:58 117 H 18 95 Nasal Cannula 01/26/25 02:00 36.7 C 102 H 18 132/82 95 Nasal Cannula 01/25/25 23:11 105 H O2 Flow Rate 01/26/25 07:54 3.5 01/26/25 07:51 3 01/26/25 07:35 3.5 01/26/25 07:13 01/26/25 03:58 3.5 01/26/25 02:00 3.5 01/25/25 23:11 PG Care Time/CCT Total # of Minutes Spent Total Time Spent with Patient: Total time spent is greater than 50% in coordination of care (as documented) at patient's floor/unit and/or counseling patient: Coding Level of Care Code 15583 SUB INP/OBS CARE 2/35MIN Diagnoses Community acquired pneumonia of right upper lobe of lung J18.9 Laterality: right Lung location: upper lobe of lung Nicotine use disorder F17.200 Chronic respiratory failure with hypoxia, on home oxygen therapy J96.11; Z99.81 Advanced COPD J44.9 (1) Community acquired pneumonia Laterality: right Lung location: upper lobe of lung Qualified Code(s): J18.9 - Pneumonia, unspecified organism
[2025-01-26] MEDS ORDERED: ALBUT/IPRATROP 3MG/0.5MG NEB 3 ML VIAL NEB SCH (11:30)
[2025-01-26] MEDS: LACTATED RINGER'S 1,000 ML IV SCH (14:32)
[2025-01-26] MEDS: ALBUT/IPRATROP 3MG/0.5MG NEB 3 ML VIAL NEB SCH (18:11)
[2025-01-26] MEDS: ESZOPICLONE 1 MG TAB PO PRN (22:33)
--- NOTE | 2025-01-27 08:08 | Hospitalist Progress Note ---
Date of Service January 27, 2025 Assessment & Plan (1) Community acquired pneumonia: (2) Nicotine use disorder: (3) Chronic respiratory failure with hypoxia, on home oxygen therapy: (4) Advanced COPD: (5) Acute effusion of both middle ears: (6) Eustachian tube dysfunction: Plan In summary this is a 70-year-old female who presents with community-acquired pneumonia #Community acquired pneumonia // Chronic respiratory failure with hypoxia, requiring continuous oxygen supplementation // Nicotine use disorder // Tachycardia Patient presented with progressive mildly productive cough, increased dyspnea on exertion, pleuritic right sided chest wall pain, tachypnea; initial PSI score of 71; notable neutrophilic leukocytosis; plain film and CT angiogram of the chest reviewed with findings consistent with pneumonia; Shorr score of 0; at this time the patient's presentation is not consistent with a comorbid COPD exacerbation, thus will withhold additional steroid therapy unless these findings become more apparent; tachycardia is likely consequential of beta-agonist frequency in addition to pain from intercostal strain Follow vital signs every shift Activity as tolerated Incentive spirometry and flutter valve every hour while awake Continue home inhaler therapies Continue DuoNebs to every 12 hours scheduled Continue albuterol nebulizers every 3 hours as needed for breakthrough shortness of breath - Continue hypertonic saline nebulizer twice daily to assist with expectoration Continue levofloxacin 750 mg IV daily, total 5 day course through 01/28 Maintain oxygen saturation greater than 90% Viral swabs for influenza, RSV, COVID-19 unremarkable #Intercostal muscle strain Consequential of coughing associated with CAP; pain management as below; continues to improve -Continue acetaminophen 1000 mg p.o. every 8 hours -Continue ketorolac 15 mg IV every 6 hours scheduled, to be continued through 01/28 or discontinued at discharge, whichever occurs first #Middle ear effusions with eustachian tube dysfunction With normal neurologic exam, suspect this is unlikely to be a central or peripheral neurologic process; more likely to be consequential of found middle ear effusions, precipitated by eustachian tube dysfunction in the setting of recent sinusitis - Start ipratropium spray twice daily The remainder the patient's chronic medical conditions are stable and do not require adjustment to their outpatient regimen at this time Admission and Anticipated Discharge Date Admission Date: January 24, 2025 Subjective Ms. Winters is a 70-year-old female whose active medical conditions include chronic respiratory failure with hypoxia in the setting of chronic mucinous bronchitis requiring 3 to 4 L of supplemental oxygen by nasal cannula continuously, nicotine use disorder, generalized anxiety disorder among other chronic medical conditions who presented to the [facility] on 01/24 due to persistent and progressive cough and shortness of breath. No acute overnight events; intermittent positional dizziness began in the after noon on 01/26, without associated diplopia Review of Systems Review of Systems: Review of constitutional, cardiovascular, pulmonary, gastrointestinal systems was unremarkable except for pertinent positive and negative findings discussed above Physical Exam Physical Exam: General: Adult female in no acute distress Vital Signs: Reviewed; saturating at goal on home 4 L of oxygen by nasal cannula HEENT: moist mucous membranes; tympanosclerosis bilaterally with bulging, difficult to assess for the presence of fluid and/or air accumulation given EAC stenosis Pulmonary: Symmetrically reduced chest wall excursion secondary to right sided chest wall discomfort with deep inhalation; improved air movement throughout all lung marin with mid end expiratory wheezing, crackles appreciated in the right superior and basilar posterior lobes Cardiovascular: regular rate and rhythm without murmurs, rubs, or gallops; S1 and S2 normal; right radial pulse 2+; bilateral lower extremity lipedema Musculoskeletal: Tenderness to palpation in the right 5th through 8th intercostal space; no reproducible tenderness along the costochondral border bilaterally Neurologic: Cranial nerves II through XII grossly intact; no appreciable nystagmus with extremes of horizontal gaze; test of skew was unremarkable Results & Data Results & Data Vital Signs (Past 12 Hours) Vital Signs Temp Pulse Pulse Resp BP Pulse Ox O2 Del Method 01/27/25 07:14 110 H 22 92 Nasal Cannula 01/27/25 07:00 Nasal Cannula 01/27/25 02:55 100 H 18 97 Nasal Cannula 01/27/25 02:37 36.5 C 107 H 18 150/80 H 95 Nasal Cannula 01/26/25 22:32 36.7 C 96 H 18 132/79 97 Nasal Cannula 01/26/25 21:43 98 H O2 Flow Rate 01/27/25 07:14 3 01/27/25 07:00 3.5 01/27/25 02:55 3.5 01/27/25 02:37 3.5 01/26/25 22:32 3.5 01/26/25 21:43 PG Care Time/CCT Total # of Minutes Spent Total Time Spent with Patient: Total time spent is greater than 50% in coordination of care (as documented) at patient's floor/unit and/or counseling patient: Coding Level of Care Code 06893 SUB INP/OBS CARE 2/35MIN Diagnoses Community acquired pneumonia of right upper lobe of lung J18.9 Laterality: right Lung location: upper lobe of lung Nicotine use disorder F17.200 Chronic respiratory failure with hypoxia, on home oxygen therapy J96.11; Z99.81 Advanced COPD J44.9 Acute effusion of both middle ears H65.193 Dysfunction of both eustachian tubes H69.93 Laterality: bilateral (1) Community acquired pneumonia Laterality: right Lung location: upper lobe of lung Qualified Code(s): J18.9 - Pneumonia, unspecified organism (6) Eustachian tube dysfunction Laterality: bilateral Qualified Code(s): H69.93 - Unspecified Eustachian tube disorder, bilateral
[2025-01-27 08:22] LABS: Hematocrit (blood only) 32.1 % (37.0-47.0); Hemoglobin 10.2 g/dL (12.0-16.0); Mean Corpuscular Hemoglobin 31.3 pg (25.0-34.0); Mean Corpuscular Volume 98.5 fL (80.0-100.0); Platelet Count 297 K/uL (130-400); RDW Standard Deviation 53.1 fL (36.4-46.3); Red Blood Count 3.26 M/uL (4.20-5.40); White Blood Count 9.93 K/ul (4.8-10.8)
[2025-01-27 08:39] LABS: Albumin Level 3.0 gm/dl (3.4-5.0); Anion Gap 7.0 (3-11); Blood Urea Nitrogen 15.0 mg/dl (6-23); Calcium 8.2 mg/dl (8.6-10.3); Carbon Dioxide 32.0 mmol/L (21-32); Chloride 103.0 mmol/L (98-107); Creatinine Clr Calc Pharmacy 83.4 ml/min; Glucose 108.0 mg/dl (70-99(Fasting)); Potassium 3.7 mmol/L (3.5-5.1); Sodium 142.0 mmol/L (136-145)
[2025-01-27] MEDS: IPRATROPIUM BROMIDE NASAL SPRAY 0.03% 30 ML NAE SCH (20:21)
[2025-01-27] MEDS ORDERED: IPRATROPIUM BROMIDE NASAL SPRAY 0.06% 15ML NAE SCH (21:00)
[2025-01-28 07:18] LABS: Hematocrit (blood only) 29.2 % (37.0-47.0); Hemoglobin 9.5 g/dL (12.0-16.0); Mean Corpuscular Hemoglobin 31.5 pg (25.0-34.0); Mean Corpuscular Volume 96.7 fL (80.0-100.0); Platelet Count 324 K/uL (130-400); RDW Standard Deviation 50.1 fL (36.4-46.3); Red Blood Count 3.02 M/uL (4.20-5.40); White Blood Count 12.53 K/ul (4.8-10.8)
[2025-01-28 07:36] LABS: Albumin Level 2.8 gm/dl (3.4-5.0); Anion Gap 5.0 (3-11); Blood Urea Nitrogen 12.0 mg/dl (6-23); Calcium 8.0 mg/dl (8.6-10.3); Carbon Dioxide 34.0 mmol/L (21-32); Chloride 102.0 mmol/L (98-107); Creatinine Clr Calc Pharmacy 91.0 ml/min; Glucose 112.0 mg/dl (70-99(Fasting)); Potassium 4.0 mmol/L (3.5-5.1); Sodium 141.0 mmol/L (136-145)
[2025-01-28] MEDS: DOCUSATE SODIUM/SENNA 50/8.6MG TAB PO SCH (09:37)
[2025-01-28] MEDS: ACETAMINOPHEN 325 MG TAB PO PRN (14:55)
[2025-01-28] MEDS: POLYETHYLENE (MIRALAX) 17 GM PACK PO SCH ×2 (18:17→20:40)
--- NOTE | 2025-01-28 22:23 | Hospitalist Progress Note ---
Date of Service January 28, 2025 Assessment & Plan (1) Community acquired pneumonia: (2) Nicotine use disorder: (3) Chronic respiratory failure with hypoxia, on home oxygen therapy: (4) Advanced COPD: (5) Acute effusion of both middle ears: (6) Eustachian tube dysfunction: Plan In summary this is a 70-year-old female who presents with community-acquired pneumonia #Community acquired pneumonia // Chronic respiratory failure with hypoxia, requiring continuous oxygen supplementation // Nicotine use disorder // Tachycardia Patient presented with progressive mildly productive cough, increased dyspnea on exertion, pleuritic right sided chest wall pain, tachypnea; initial PSI score of 71; notable neutrophilic leukocytosis; plain film and CT angiogram of the chest reviewed with findings consistent with pneumonia; Shorr score of 0; at this time the patient's presentation is not consistent with a comorbid COPD exacerbation, thus will withhold additional steroid therapy unless these findings become more apparent; tachycardia is likely consequential of beta-agonist frequency in addition to pain from intercostal strain Follow vital signs every shift Activity as tolerated Incentive spirometry and flutter valve every hour while awake Continue home inhaler therapies Continue DuoNebs to every 12 hours scheduled Continue albuterol nebulizers every 3 hours as needed for breakthrough shortness of breath - Continue hypertonic saline nebulizer twice daily to assist with expectoration Continue levofloxacin 750 mg IV daily, total 5 day course through 01/28 Viral swabs for influenza, RSV, COVID-19 unremarkable #Intercostal muscle strain Consequential of coughing associated with CAP; pain management as below; continues to improve -Continue acetaminophen 1000 mg p.o. every 8 hours -Continue ketorolac 15 mg IV every 6 hours scheduled, to be continued through 01/28 or discontinued at discharge, whichever occurs first #Middle ear effusions with eustachian tube dysfunction With normal neurologic exam, suspect this is unlikely to be a central or peripheral neurologic process; more likely to be consequential of found middle ear effusions, precipitated by eustachian tube dysfunction in the setting of recent sinusitis - Start ipratropium spray twice daily -now with left sided dizziness, may be related vs BPPV Will benefit from outpatient ENT consult. Admission and Anticipated Discharge Date Admission Date: January 24, 2025 Subjective 70 yo female reports feeling dizzy when she turns her head to the left. Physical Exam Physical Exam: General: Adult female in no acute distress HEENT: moist mucous membranes; Pulmonary: Symmetrically reduced chest wall excursion secondary to right sided chest wall discomfort with deep inhalation; improved air movement throughout all lung marin Cardiovascular: regular rate and rhythm without murmurs, rubs, or gallops; S1 and S2 normal; right radial pulse 2+; bilateral lower extremity lipedema ly Neurologic: Cranial nerves II through XII grossly intact; no appreciable nystagmus with extremes of horizontal gaze; test of skew was unremarkable Results & Data Results & Data Vital Signs (Past 12 Hours) Vital Signs Temp Pulse Pulse Pulse Resp BP Pulse Ox 01/28/25 21:36 01/28/25 19:46 107 H 20 95 01/28/25 19:23 36.9 C 106 H 18 150/79 H 95 01/28/25 17:13 01/28/25 16:02 103 H 18 95 01/28/25 15:41 36.7 C 95 H 18 145/80 H 96 01/28/25 15:14 106 H 01/28/25 12:10 102 H 18 95 01/28/25 11:40 36.5 C 103 H 18 128/71 96 01/28/25 10:57 Pulse Ox O2 Del Method O2 Del Method O2 Flow Rate O2 Flow Rate 01/28/25 21:36 Nasal Cannula 3 01/28/25 19:46 Nasal Cannula 3.5 01/28/25 19:23 Nasal Cannula 3 01/28/25 17:13 95 Nasal Cannula 3 01/28/25 16:02 Nasal Cannula 3 01/28/25 15:41 Nasal Cannula 3 01/28/25 15:14 01/28/25 12:10 Nasal Cannula 3 01/28/25 11:40 Nasal Cannula 3.5 01/28/25 10:57 Nasal Cannula 3 PG Care Time/CCT Total # of Minutes Spent Total Time Spent with Patient: Total time spent is greater than 50% in coordination of care (as documented) at patient's floor/unit and/or counseling patient: Coding Level of Care Code 34961 SUB INP/OBS CARE 3/50MIN Diagnoses Community acquired pneumonia of right upper lobe of lung J18.9 Laterality: right Lung location: upper lobe of lung Nicotine use disorder F17.200 Chronic respiratory failure with hypoxia, on home oxygen therapy J96.11; Z99.81 Advanced COPD J44.9 Acute effusion of both middle ears H65.193 Dysfunction of both eustachian tubes H69.93 Laterality: bilateral (1) Community acquired pneumonia Laterality: right Lung location: upper lobe of lung Qualified Code(s): J18.9 - Pneumonia, unspecified organism (6) Eustachian tube dysfunction Laterality: bilateral Qualified Code(s): H69.93 - Unspecified Eustachian tube disorder, bilateral
[2025-01-29 07:44] LABS: Hematocrit (blood only) 31.0 % (37.0-47.0); Hemoglobin 9.9 g/dL (12.0-16.0); Mean Corpuscular Hemoglobin 31.3 pg (25.0-34.0); Mean Corpuscular Volume 98.1 fL (80.0-100.0); Platelet Count 337 K/uL (130-400); RDW Standard Deviation 52.3 fL (36.4-46.3); Red Blood Count 3.16 M/uL (4.20-5.40); White Blood Count 13.68 K/ul (4.8-10.8)
[2025-01-29 08:03] LABS: Anion Gap 6.0 (3-11); Blood Urea Nitrogen 10.0 mg/dl (6-23); Calcium 8.1 mg/dl (8.6-10.3); Carbon Dioxide 35.0 mmol/L (21-32); Chloride 101.0 mmol/L (98-107); Creatinine Clr Calc Pharmacy 89.5 ml/min; Glucose 114.0 mg/dl (70-99(Fasting)); Potassium 3.8 mmol/L (3.5-5.1); Sodium 142.0 mmol/L (136-145)
--- NOTE | 2025-01-29 20:09 | Hospitalist Progress Note ---
Date of Service January 29, 2025 Assessment & Plan (1) Community acquired pneumonia: (2) Nicotine use disorder: (3) Chronic respiratory failure with hypoxia, on home oxygen therapy: (4) Advanced COPD: (5) Acute effusion of both middle ears: (6) Eustachian tube dysfunction: Plan In summary this is a 70-year-old female who presents with community-acquired pneumonia #Community acquired pneumonia // Chronic respiratory failure with hypoxia, requiring continuous oxygen supplementation // Nicotine use disorder // Tachycardia Patient presented with progressive mildly productive cough, increased dyspnea on exertion, pleuritic right sided chest wall pain, tachypnea; initial PSI score of 71; notable neutrophilic leukocytosis; plain film and CT angiogram of the chest reviewed with findings consistent with pneumonia; Shorr score of 0; at this time the patient's presentation is not consistent with a comorbid COPD exacerbation, thus will withhold additional steroid therapy unless these findings become more apparent; tachycardia is likely consequential of beta-agonist frequency in addition to pain from intercostal strain Follow vital signs every shift Activity as tolerated Incentive spirometry and flutter valve every hour while awake Continue home inhaler therapies Continue DuoNebs to every 12 hours scheduled Continue albuterol nebulizers every 3 hours as needed for breakthrough shortness of breath - Continue hypertonic saline nebulizer twice daily to assist with expectoration Completed levofloxacin 750 mg IV daily, total 5 day course through 01/28 Viral swabs for influenza, RSV, COVID-19 unremarkable #Intercostal muscle strain Consequential of coughing associated with CAP; pain management as below; continues to improve -Continue acetaminophen 1000 mg p.o. every 8 hours -Continue ketorolac 15 mg IV every 6 hours scheduled, to be continued through 01/28 or discontinued at discharge, whichever occurs first #Middle ear effusions with eustachian tube dysfunction With normal neurologic exam, suspect this is unlikely to be a central or peripheral neurologic process; more likely to be consequential of found middle ear effusions, precipitated by eustachian tube dysfunction in the setting of recent sinusitis - Start ipratropium spray twice daily -now with left sided dizziness, may be related vs BPPV Will benefit from outpatient ENT consult. Dizziess is slowly improving. Discussed with PT Admission and Anticipated Discharge Date Admission Date: January 24, 2025 Subjective Patient reports no new symptoms Dizziness has improved. Physical Exam Physical Exam: General: Adult female in no acute distress HEENT: moist mucous membranes; Pulmonary: Symmetrically reduced chest wall excursion secondary to right sided chest wall discomfort with deep inhalation; improved air movement throughout all lung marin Cardiovascular: regular rate and rhythm without murmurs, rubs, or gallops; S1 and S2 normal; right radial pulse 2+; bilateral lower extremity lipedema ly Neurologic: Cranial nerves II through XII grossly intact; no appreciable nystagmus with extremes of horizontal gaze; test of skew was unremarkable Results & Data Results & Data Vital Signs (Past 12 Hours) Vital Signs Temp Pulse Pulse Resp BP BP Pulse Ox 01/29/25 19:57 93 H 18 96 01/29/25 19:45 36.6 C 103 H 18 128/78 95 01/29/25 15:00 36.8 C 105 H 20 116/74 96 01/29/25 14:31 106 H 01/29/25 13:38 92 01/29/25 11:31 120 H 18 95 01/29/25 11:24 36.8 C 107 H 20 135/98 96 01/29/25 09:18 O2 Del Method O2 Flow Rate 01/29/25 19:57 Nasal Cannula 3 01/29/25 19:45 Nasal Cannula 4 01/29/25 15:00 Nasal Cannula 3.5 01/29/25 14:31 01/29/25 13:38 4 01/29/25 11:31 Nasal Cannula 4 01/29/25 11:24 Nasal Cannula 3.5 01/29/25 09:18 Nasal Cannula 3.5 PG Care Time/CCT Total # of Minutes Spent Total Time Spent with Patient: Total time spent is greater than 50% in coordination of care (as documented) at patient's floor/unit and/or counseling patient: Coding Level of Care Code 99597 SUB INP/OBS CARE 3/50MIN Diagnoses Community acquired pneumonia of right upper lobe of lung J18.9 Laterality: right Lung location: upper lobe of lung Nicotine use disorder F17.200 Chronic respiratory failure with hypoxia, on home oxygen therapy J96.11; Z99.81 Advanced COPD J44.9 Acute effusion of both middle ears H65.193 Dysfunction of both eustachian tubes H69.93 Laterality: bilateral (1) Community acquired pneumonia Laterality: right Lung location: upper lobe of lung Qualified Code(s): J18.9 - Pneumonia, unspecified organism (6) Eustachian tube dysfunction Laterality: bilateral Qualified Code(s): H69.93 - Unspecified Eustachian tube disorder, bilateral
[2025-01-29] MEDS: FIRST - Mouthwash BLM 5 ML UDP PO ONE (22:15)
--- NOTE | 2025-01-30 10:50 | Hospitalist Progress Note ---
Date of Service January 30, 2025 Assessment & Plan (1) Community acquired pneumonia: (2) Nicotine use disorder: (3) Chronic respiratory failure with hypoxia, on home oxygen therapy: (4) Advanced COPD: (5) Acute effusion of both middle ears: (6) Eustachian tube dysfunction: Plan In summary this is a 70-year-old female who presents with community-acquired pneumonia #Community acquired pneumonia // Chronic respiratory failure with hypoxia, requiring continuous oxygen supplementation // Nicotine use disorder // Tachycardia Patient presented with progressive mildly productive cough, increased dyspnea on exertion, pleuritic right sided chest wall pain, tachypnea; initial PSI score of 71; notable neutrophilic leukocytosis; plain film and CT angiogram of the chest reviewed with findings consistent with pneumonia; Shorr score of 0; at this time the patient's presentation is not consistent with a comorbid COPD exacerbation, thus will withhold additional steroid therapy unless these findings become more apparent; tachycardia is likely consequential of beta-agonist frequency in addition to pain from intercostal strain; With leukocytosis as developed over the past 48 hours, procalcitonin this following the patient's hospitalization for being initially admitted for community-acquired pneumonia is without diagnostic value as a clinically continue to improve; would make no adjustments to the patient's medical course at this time and anticipate discharge in 01/31 Follow vital signs every shift Activity as tolerated Incentive spirometry and flutter valve every hour while awake Continue home inhaler therapies Continue DuoNebs to every 12 hours scheduled Continue albuterol nebulizers every 3 hours as needed for breakthrough shortness of breath - Continue hypertonic saline nebulizer twice daily to assist with expectoration Completed levofloxacin 750 mg IV daily, total 5 day course through 01/28 Viral swabs for influenza, RSV, COVID-19 unremarkable #Intercostal muscle strain Consequential of coughing associated with CAP; pain management as below; continues to improve -Continue acetaminophen 1000 mg p.o. every 8 hours #Middle ear effusions with eustachian tube dysfunction With normal neurologic exam, suspect this is unlikely to be a central or peripheral neurologic process; more likely to be consequential of found middle ear effusions, precipitated by eustachian tube dysfunction in the setting of recent sinusitis - Continue ipratropium spray twice daily - now with left sided dizziness, may be related vs BPPV Will benefit from outpatient ENT consult. Dizziess is slowly improving. Discussed with PT Admission and Anticipated Discharge Date Admission Date: January 24, 2025 Subjective Ms. Winters is a 70-year-old female whose active medical conditions include chronic respiratory failure with hypoxia in the setting of chronic mucinous bro nchitis requiring 3 to 4 L of supplemental oxygen by nasal cannula continuously, nicotine use disorder, generalized anxiety disorder among other chronic medical conditions who presented to the [facility] on 01/24 due to persistent and progressive cough and shortness of breath. No acute overnight events; continues to feel improved however unsure with regard to discharge today specifically with respect to the holiday and securing a ride Review of Systems Review of Systems: Review of constitutional, cardiovascular, pulmonary, gastrointestinal systems was unremarkable except for pertinent positive and negative findings discussed above Physical Exam Physical Exam: General: Adult female in no acute distress Vital Signs: Reviewed; saturating at goal on home 4 L of oxygen by nasal cannula HEENT: moist mucous membranes Pulmonary: Symmetric chest wall excursion without restriction; improved air movement throughout all lung marin compared to previous exam on 01/27 Cardiovascular: regular rate and rhythm without murmurs, rubs, or gallops; S1 and S2 normal; right radial pulse 2+; bilateral lower extremity lipedema Neurologic: Cranial nerves II through XII grossly intact Results & Data Results & Data Vital Signs (Past 12 Hours) Vital Signs Temp Pulse Pulse Resp BP BP Pulse Ox 01/30/25 10:41 01/30/25 07:51 85 01/30/25 07:27 36.7 C 96 H 20 127/71 96 01/30/25 07:26 97 H 20 95 01/30/25 03:53 36.6 C 97 H 18 131/75 96 01/30/25 01:13 104 H 18 98 01/30/25 00:23 01/30/25 00:20 103 H 01/29/25 23:32 36.6 C 94 H 18 124/74 96 O2 Del Method O2 Flow Rate 01/30/25 10:41 Nasal Cannula 3.5 01/30/25 07:51 01/30/25 07:27 Nasal Cannula 3 01/30/25 07:26 Nasal Cannula 3 01/30/25 03:53 Nasal Cannula 4 01/30/25 01:13 Nasal Cannula 3.5 01/30/25 00:23 Nasal Cannula 3.5 01/30/25 00:20 01/29/25 23:32 Nasal Cannula 4 PG Care Time/CCT Total # of Minutes Spent Total Time Spent with Patient: Total time spent is greater than 50% in coordination of care (as documented) at patient's floor/unit and/or counseling patient: Coding Level of Care Code 65911 SUB INP/OBS CARE 2/35MIN Diagnoses Community acquired pneumonia of right upper lobe of lung J18.9 Laterality: right Lung location: upper lobe of lung Nicotine use disorder F17.200 Chronic respiratory failure with hypoxia, on home oxygen therapy J96.11; Z99.81 Advanced COPD J44.9 Acute effusion of both middle ears H65.193 Dysfunction of both eustachian tubes H69.93 Laterality: bilateral (1) Community acquired pneumonia Laterality: right Lung location: upper lobe of lung Qualified Code(s): J18.9 - Pneumonia, unspecified organism (6) Eustachian tube dysfunction Laterality: bilateral Qualified Code(s): H69.93 - Unspecified Eustachian tube disorder, bilateral
[2025-01-31 07:13] VITALS: RESP 18
[2025-01-31 07:37] VITALS: BP 148/83; TEMP 98.2
--- NOTE | 2025-01-31 12:17 | Discharge Summary ---
Discharge Summary Date of Service January 31, 2025 Principal Dx & Hospital Course #1 = Principal Diagnosis (1) Community acquired pneumonia: (2) Nicotine use disorder: (3) Chronic respiratory failure with hypoxia, on home oxygen therapy: (4) Advanced COPD: (5) Acute effusion of both middle ears: (6) Eustachian tube dysfunction: Plan In summary this is a 70-year-old female who presents with community-acquired pneumonia #Community acquired pneumonia // Chronic respiratory failure with hypoxia, requiring continuous oxygen supplementation // Nicotine use disorder // Tachycardia Patient presented with progressive mildly productive cough, increased dyspnea on exertion, pleuritic right sided chest wall pain, tachypnea; initial PSI score of 71; notable neutrophilic leukocytosis; plain film and CT angiogram of the chest reviewed with findings consistent with pneumonia; Shorr score of 0; at this time the patient's presentation is not consistent with a comorbid COPD exacerbation, thus will withhold additional steroid therapy unless these findings become more apparent; tachycardia is likely consequential of beta-agonist frequency in addition to pain from intercostal strain; With leukocytosis as developed over the past 48 hours, procalcitonin this following the patient's hospitalization for being initially admitted for community-acquired pneumonia is without diagnostic value as a clinically continue to improve; would make no adjustments to the patient's medical course at this time and anticipate discharge in 01/31 Follow vital signs every shift Activity as tolerated Incentive spirometry and flutter valve every hour while awake Continue home inhaler therapies Continue DuoNebs to every 12 hours scheduled Continue albuterol nebulizers every 3 hours as needed for breakthrough shortness of breath - Continue hypertonic saline nebulizer twice daily to assist with expectoration Completed levofloxacin 750 mg IV daily, total 5 day course through 01/28 Viral swabs for influenza, RSV, COVID-19 unremarkable #Intercostal muscle strain Consequential of coughing associated with CAP; pain management as below; continues to improve -Continue acetaminophen 1000 mg p.o. every 8 hours #Middle ear effusions with eustachian tube dysfunction With normal neurologic exam, suspect this is unlikely to be a central or peripheral neurologic process; more likely to be consequential of found middle ear effusions, precipitated by eustachian tube dysfunction in the setting of recent sinusitis - Continue ipratropium spray twice daily - now with left sided dizziness, may be related vs BPPV Will benefit from outpatient ENT consult. Dizziess is slowly improving. Discussed with PT Admission HPI Per Admitting Provider Ms. Winters is a 70-year-old female whose active medical conditions include chronic respiratory failure with hypoxia in the setting of chronic mucinous bronchitis requiring 3 to 4 L of supplemental oxygen by nasal cannula continuously, nicotine use disorder, generalized anxiety disorder among other chronic medical conditions who presented to the [facility] on 01/24 due to persistent and progressive cough and shortness of breath. Patient reports she began to feel unwell approximately 7 days prior to her presentation with what she thought was bacterial sinusitis. She was prescribed a course of azithromycin for 5 days which did not resolve her symptoms. She endorses right sided chest wall pain that began after a rough coughing episode on 01/23 which resulted in now pleuritic chest pain. She typically has a productive cough related to her COPD, but denies any worsening of this during the current course. She has used her rescue inhalers more frequently over this time. She denies any fevers, chills, nausea, vomiting, purulent expectoration or hemoptysis, chest pain other than the previously described discomfort, palpitations, lower extremity swelling. Discharge Plan Discharge Items Patient Disposition: Home - Self-Care Reason For Visit: COMMUNITY ACQUIRED PNEUMONIA Discharge Diagnosis: Pneumonia Condition on Discharge: Fair Activity: Resume your previous activity Non-emergency contact: Primary Care Provider Call non-emergency contact if: you have any medication questions Follow-up/Referrals: Ajay Delgado DO [Primary Care Provider] - 02/12/25 11:00 am Diet: Regular Addtl Attending Provider Instructions: You have been hospitalized for an acute medical problem. During your stay at [facility], we have made an effort to correct the problem that brought you to the hospital while keeping you as comfortable as possible. Medications were used to bring your condition under control and your discharge instructions will include directions for any medications you should take after leaving the hospital. Please make sure you see your Primary Care Provider as part of your follow up plan. Please followup with your PCP in 1-2 weeks. Please followup with your [employer] as soon as they have availablilty given your recent hospital stay. Pending Studies at Discharge: No Stand-Alone Forms: My [facility] [employer], Smoking Cessation Medications and DC Order Prescriptions: New azithromycin 250 mg tablet 250 mg PO MOWEFR Qty: 12 1RF Continued ipratropium-albuterol 0.5 mg-3 mg(2.5 mg base)/3 mL solution for nebulization 3 ml inhalation TID PRN (Reason: wheezing) Qty: 360 3RF albuterol sulfate 90 mcg/actuation HFA aerosol inhaler 2 inh inhalation Q4H PRN (Reason: shortness of breath or wheezing) Qty: 3 3RF Breztri Aerosphere 160-9-4.8 mcg/actuation HFA aerosol inhaler 2 inh inhalation BID Qty: 32.1 3RF fluticasone propionate 50 mcg/actuation spray,suspension 1 spray intranasal BID PRN (Reason: nasal congestion) Qty: 16 3RF Patient Comments: 01/24- last filled 07/01 30 day supply montelukast 10 mg tablet 10 mg PO DAILY Qty: 90 3RF buspirone 10 mg tablet 10 mg PO BID Qty: 180 1RF (DME) Portable Oxygen Misc See Rx Instructions .Route Qty: 1 0RF Rx Instructions: Portable oxygen concentrator. 2 L via nasal cannula at all times. furosemide 20 mg tablet 20 mg PO QAM PRN (Reason: edema) Qty: 30 2RF Patient Comments: 01/24- last filled 10/18 30 day supply #30 pantoprazole 40 mg tablet,delayed release (DR/EC) 0 mg PO BID Patient Comments: 01/24- last filled 06/18 90 day supply #180 loratadine 10 mg tablet 0 mg PO DAILY Patient Comments: 01/24- OTC/ last filled 10/22 90 day supply #90 Ohtuvayre 3 mg/2.5 mL suspension for nebulization 0 ml inhalation BID Patient Comments: 01/24- no fill history unable to verify. original: 2.5ml inhalation bid Discontinued doxycycline hyclate 100 mg capsule 100 mg PO BID 10 Days Qty: 20 0RF Discharge Orders: Discharge Order (Routine); Ordered 01/31/25 Ordered By: Ramsey Olivares/Other Patient Handouts: Azithromycin Oral Tablet Admission Data Admit Date/Time: 01/24/25 11:31 Attending Provider: Ramsey Gonzalez Admit Provider: Azeem Plascencia Primary Care Provider: Ajay Delgado Other Providers: Azeem Plascencia Hospital Stay Data Consultations 11/21/25 11:10 ED Decision to Admit Stat Diagnostic Imagining Performed 01/24/25 09:23 CT angio chest PE protocol Stat Pending Results Patient Have Any Pending Studies at Discharge: No Discharge Instructions Given to Patient (Per Discharging Provider) You have been hospitalized for an acute medical problem. During your stay at [facility], we have made an effort to correct the problem that brought you to the hospital while keeping you as comfortable as possible. Medications were used to bring your condition under control and your discharge instructions will include directions for any medications you should take after leaving the hospital. Please make sure you see your Primary Care Provider as part of your follow up plan. Please followup with your PCP in 1-2 weeks. Please followup with your [employer] as soon as they have availablilty given your recent hospital stay. Coding Diagnoses Community acquired pneumonia of right upper lobe of lung J18.9 Laterality: right Lung location: upper lobe of lung Nicotine use disorder F17.200 Chronic respiratory failure with hypoxia, on home oxygen therapy J96.11; Z99.81 Advanced COPD J44.9 Acute effusion of both middle ears H65.193 Dysfunction of both eustachian tubes H69.93 Laterality: bilateral
[2025-01-31 13:17] VITALS: PULSE 96; O2SAT 98
== END 2025-01-31 15:01 | disposition home or self-care (01) | DRG 194 ==
LOC: ED 08:34 → SUATTDRO 11:31 → 2W 11:31